=== PATIENT | female | born 1980 | race African-American/Black ===

== ENCOUNTER 2023-12-17 22:03 | Emergency (ER) | payer BC | END 2023-12-17 23:15 | disposition home or self-care (01) | LOC: NAV ERS 22:03 | DX: S92.515A Nondisplaced fracture of proximal phalanx of left lesser toe(s), initial encounter for closed fracture (principal); W23.1XXA Caught, crushed, jammed, or pinched between stationary objects, initial encounter | CPT/HCPCS: 29515 ==